=== PATIENT | male | born 1980 | race Two or more races ===

== ENCOUNTER 2025-01-26 08:38 | Emergency (ER) | payer MEDICAID ==
[~2025-01-26] VITALS: Ht 177.8 cm; Wt 90.0 kg
[2025-01-26 08:42] VITALS: O2SAT 98
[2025-01-26 09:05] LABS: BASOPHILS % 0.7 % (0.0-2.0); EOSINOPHILS % 1.2 % (0.0-5.0); HEMATOCRIT. 36.9 % (42.0-52.0); HEMOGLOBIN. 12.6 g/dL (14.0-18.0); LYMPHOCYTES % 27.9 % (20.0-50.0); MEAN CORPUSCULAR HEMOGLOBIN 32.3 pg (28.0-32.0); MEAN CORPUSCULAR HGB CONC 34.2 g/dL (31.0-37.0); MEAN CORPUSCULAR VOLUME 94.4 fL (80.0-94.0); MEAN PLATELET VOLUME 8.1 fl (7.4-10.4); MONOCYTES % 6.1 % (2.0-8.0); NEUTROPHILS % 64.1 % (40.0-76.0); PLATELET 199 x1000/uL (130-400); RED BLOOD CELL COUNT 3.91 mill/uL (4.7-6.1); RED CELL DISTRIBUTION WIDTH 13.1 % (11.6-14.6); WHITE BLOOD COUNT 10.9 x1000/uL (4.5-11.0)
[2025-01-26] MEDS: ONDANSETRON HCL 4MG/2ML INJ IV STA ×3 (09:06→11:10)
[2025-01-26] MEDS: MORPHINE SULFATE 4 MG/ML INJ (FOR IV/IM USE) IV STA ×3 (09:08→11:14)
[2025-01-26 09:17] LABS: CHLORIDE 108 mEq/L (98-107); POTASSIUM 3.4 mEq/L (3.5-5.1); SODIUM 146 mEq/L (136-145)
[2025-01-26 09:18] LABS: CARBON DIOXIDE 26 mEq/L (21-32)
[2025-01-26 09:19] LABS: CALCIUM 9.1 mg/dL (8.7-10.4)
[2025-01-26 09:23] LABS: CREATININE 1.3 mg/dL (0.6-1.3); GLUCOSE 179 mg/dL (70-105)
[2025-01-26 09:24] LABS: ETHANOL BLOOD < 10 mg/dL (<10); UREA NITROGEN BLOOD 10 mg/dL (9-23)
[2025-01-26 09:25] LABS: TROPONIN I HIGH SENSITIVITY 8 ng/L (3.0-53)
[2025-01-26 10:11] LABS: PROTHROMBIN TIME 10.4 sec (9.6-11.0)
[2025-01-26] MEDS: LABETALOL 5MG/ML 4ML INJ IV ONE ×2 (10:53→12:41)
[2025-01-26 11:09] LABS: CLARITY URINE CLEAR (CLEAR); COLOR URINE YELLOW (YELLOW); GLUCOSE URINE TRACE (NEGATIVE); KETONES URINE NEGATIVE (NEGATIVE); LEUKOCYTE ESTERASE URINE NEGATIVE (NEGATIVE); NITRITE URINE NEGATIVE (NEGATIVE); OCCULT BLOOD URINE NEGATIVE (NEGATIVE); PROTEIN URINE 1+ (NEGATIVE); SPECIFIC GRAVITY URINE 1.015 (1.005-1.030); UROBILINOGEN URINE 0.2 E.U./dL (0.2-1.0)
[2025-01-26] MEDS: NICARDIPINE 40MG/200ML PREMIX 200 ML IV PRN (11:14)
[2025-01-26] MEDS: PANTOPRAZOLE SODIUM 40 MG/VIAL IV ONE (11:14)
[2025-01-26 11:34] LABS: FINE GRANULAR CASTS URINE 0-5 /lpf; HYALINE CASTS URINE 0-5 /lpf; MUCUS URINE 2+ /lpf (NONE/TRACE); SQUAMOUS EPITHELIAL CELL URINE FEW /lpf (RARE/1+)
[2025-01-26 11:36] LABS: BACTERIA URINE TRACE; RBC URINE NONE SEEN /hpf (0-2)
[2025-01-26 11:43] LABS: *AMPHETAMINES SCREEN URINE NEGATIVE (NEGATIVE); *BARBITURATES SCREEN URINE NEGATIVE (NEGATIVE); *BENZODIAZEPINES SCREEN URINE NEGATIVE (NEGATIVE); *COCAINE SCREEN URINE NEGATIVE (NEGATIVE); CANNABINOID URINE SCREEN PRESUMPTIVE POSITIVE (NEGATIVE); ECSTASY MDMA SCREEN URINE NEGATIVE (NEGATIVE); METHADONE URINE SCREEN NEGATIVE (NEGATIVE); OPIATES URINE SCREEN PRESUMPTIVE POSITIVE (NEGATIVE); PHENCYCLIDINE URINE SCREEN NEGATIVE (NEGATIVE)
[2025-01-26 13:05] VITALS: BP 131/79; PULSE 76; RESP 14; TEMP 36.9; O2SAT 99
[2025-01-26] MEDS: IOHEXOL-350 100 ML BOTTLE ONE (13:13)
[2025-01-26] MEDS ORDERED: ESMOLOL 2500MG PREMIX 250 ML IV ONE (13:15)
[2025-01-26] MEDS ORDERED: LORAZEPAM 2MG/ML INJ IV ONE (13:15)
[2025-01-26] MEDS ORDERED: ESMOLOL 2500MG PREMIX 250 ML IV SCH (13:15)
[2025-01-26] MEDS: LORAZEPAM 2MG/ML UD SYRINGE IV SCH (13:31)
== END 2025-01-26 12:06 | disposition short-term general hospital (02) ==
LOC: ER 08:38
DX: R07.89 Other chest pain (principal); I71.00 Dissection of unspecified site of aorta; I16.1 Hypertensive emergency; I10 Essential (primary) hypertension; Z79.899 Other long term (current) drug therapy
CPT/HCPCS: 80305; 80048; 81003; 80320; 83880; 85025; 85610; 84484; 36415; 71045; 71275; 93005; 96365; 96375; 96376; 99291; Q9967; Z7610 ×5; J3490 ×2; J2060; J2405; J2470; J2270; G0480